=== PATIENT | male | born 1995 | race Caucasian/White ===

== ENCOUNTER 2020-04-28 07:35 | Emergency (ER) | payer SELFPAY ==
[2020-04-28 07:39] VITALS: BP 156/98; PULSE 72; RESP 16; TEMP 36; O2SAT 96
--- NOTE | 2020-04-28 07:56 | W.ED.GENAD ---
Discharge Plan Disposition Patient Disposition: HOME Condition: Improving Discharge Details Chief Complaint: EyeProblem Clinical Impression: Abrasion of cornea, left Primary Care Provider: Marichuy,Local ED Provider: Villa Alvares Home Meds and New Rx's Prescriptions: No Action No Known Home Meds RF: 0 Discharge Instructions Instructions: Corneal Abrasion (ED) Additional Instructions: Erythromycin ointment to left eye 3-4 times daily for 4 to 5 days. Return if develop any progressively worsening red eye, pain, fever or foul/purulent discharge. Sunglasses and cool compress will help to reduce discomfort. Tylenol and/or ibuprofen as needed for pain. Medical Decision Making 25-year-old male who lives in [facility]. Foreign body sensation left eye since yesterday that he thought may have been a piece of brick or wood. He had a small foreign body seen under the eyelid which was removed. There were superficial mild corneal abrasions left superotemporal outside the axis of vision. Visual acuity preserved as per nursing notes. Will place on erythromycin ointment. He will return or seek follow-up if not improving over 24 to 48 hours. I discussed home management with him. He is stable for discharge at this time. HPI General Mode of arrival: ambulatory. Date/Time Provider Initiated Documentation: 04/28/20 07:56. Limitations to Documentation: no limitations. Information obtained by: patient. History of Present Illness 25 year old M presents to the emergency department with the chief complaint of Eye foreign body sensation, described as mild, Quality is described as constant, and is localized to the eyes and left. and it has been constant. No relieving factors improve symptom(s), No exacerbating factors reported . Patient did receive the following treatments prior to arrival, none and other (Clear tears) Related Data Home Medications Medication Instructions Recorded Confirmed Unknown [No Known Home Meds] 04/28/20 04/28/20 Allergies Allergy/AdvReac Type Severity Reaction Status Date / Time No Known Allergies Allergy Unverified 04/28/20 07:43 General Stated Complaint: EyeProblem MIKE: 3 Review of Systems Narrative: Otherwise healthy. [facility] Social History Smoking/Tobacco Use Status: Never Alcohol Intake: current Alcohol Intake frequency: a few times a week Alcohol type: beer and hard liquor Substance use type: marijuana Exam Narrative Exam Narrative: GEN: awake, alert, oriented 3. Pleasant, well groomed, interactive. HEAD: Normocephalic, atraumatic ENT: Mucous membranes moist, oropharynx unremarkable, External ear exam unremarkable EYES: PERRL, EOMI. left eye slightly injected. Small foreign body seen under eyelid. Fluorescein/slit lamp exam with negative John sign, mild superficial left superotemporal corneal abrasions outside axis of vision. Visual acuity per nursing note NECK: Full ROM, no ELIZABET, no menigismus CHEST/RESP: No respiratory distress EXT: Full ROM, normal musculature Neuro: Grossly normal neurologic exam, conversant, interactive. Psych: Speech fluent, thoughts congruent, affect normal Course Vital Signs Vital signs: Vital Signs Temperature 36 C L 04/28/20 07:39 Pulse 72 04/28/20 07:39 Respiratory Rate 16 04/28/20 07:39 Blood Pressure 156/98 H 04/28/20 07:39 Pulse Oximetry 96 04/28/20 07:39 Temperature 36 C L 04/28/20 07:39 Temperature Source Skin 04/28/20 07:39 Pulse 72 04/28/20 07:39 Respiratory Rate 16 04/28/20 07:39 Respiratory Effort 04/28/20 07:39 Blood Pressure 156/98 H 04/28/20 07:39 Blood Pressure Position Sitting 04/28/20 07:39 Pulse Oximetry 96 04/28/20 07:39 Oxygen Delivery Method Room Air 04/28/20 07:39 Oxygen Flow Rate 0 04/28/20 07:39 Pain Level 2 04/28/20 07:39
[2020-04-28] MEDS: Erythromycin Ophth Oint 3.5 GM TUBE OS (08:00)
[2020-04-28] MEDS: Balanced Salt Solution 15 ML BTL (08:00)
[2020-04-28] MEDS: Fluorescein STRIPS 100/BOX 1 MG (08:00)
== END 2020-04-28 08:20 | disposition home or self-care (01) ==
PROVIDERS: Emergency Provider Emergency Medicine
DX: S05.02XA Injury of conjunctiva and corneal abrasion without foreign body, left eye, initial encounter (principal); X58.XXXA Exposure to other specified factors, initial encounter
CPT/HCPCS: 99283

== ENCOUNTER 2020-06-30 10:03 | Emergency (ER) | payer OTHER, SELFPAY ==
[2020-06-30] VITALS (38 sets, daily range): BP systolic 136–158; BP diastolic 77–99; PULSE 56–90; RESP 16–25; TEMP 36.3; O2SAT 96–99
--- NOTE | 2020-06-30 10:00 | RT.EKG_ITS ---
APPROVED REPORT Exam: Resting ECG Patient Location: E HR:72 bpm ECG Measurements Heart Rate 72 AXIS AL 151 P 40 QRSd 93 QRS 17 QT 361 T 28 QTc 397 Conclusion Sinus rhythm...normal P axis, V-rate 60- 99 I have reviewed and interpreted ECG and agree with software generated interpretation.
[2020-06-30 10:55] LABS: Abs Immature Grans 0.01 10^3/uL (0.0-0.06); Absolute Basophil Count 0.03 10^3/uL (0.0-0.2); Absolute Eosinophil Count 0.05 10^3/uL (0.0-0.7); Absolute Lymphocyte Count 1.26 10^3/uL (1.2-3.4); Absolute Monocyte Count 0.41 10^3/uL (0.1-0.8); Basophils % 0.7; Eosinophils % 1.1; HCT 44.5 % (40.0-50.0); HGB 15.1 g/dL (13.5-17.5); Immature Grans % 0.2; Lymphocytes % 28.3; MCHC 33.9 % (32.0-36.0); MCV 91.4 fL (80-95); MPV 11.5 fL (8.0-11.0); Monocytes % 9.2; Neutrophils % 60.5; Nucleated RBC 0 %; Platelet Count 212 10^3/uL (130-400); RBC 4.87 10^6/uL (4.36-5.78); RDW 12.4 % (11.8-14.1); RDW-SD 41.1 fL; WBC 4.46 10^3/uL (4.4-10.8)
[2020-06-30 11:16] LABS: ALT 43 U/L (16-63); AST 28 U/L (15-37); Albumin 4.2 g/dL (3.4-5.0); Alkaline Phosphatase 70 U/L (46-116); Anion Gap 7.4 mmol/L (3-11); BUN 12 mg/dL (7-18); Bilirubin, Total 0.3 mg/dL (0.2-1.0); CO2 29.6 mmol/L (21.0-32.0); CREATININE 0.95 mg/dL (0.70-1.30); Chloride 102 mmol/L (98-107); Glucose 77 mg/dL (74-106); Potassium 3.6 mmol/L (3.5-5.1); Sodium 139 mmol/L (136-145); TSH 1.36 uIU/mL (0.36-3.74); Total Protein 7.6 g/dL (6.4-8.2); Troponin I < 0.05 ng/mL (<0.06)
[2020-06-30] MEDS: Normal Saline 1,000 ML 1000 ML IV (11:19)
--- NOTE | 2020-06-30 11:29 | W.ED.GENAD ---
Discharge Plan Disposition Patient Disposition: HOME Condition: Stable Discharge Details Clinical Impression: Palpitations Primary Care Provider: None,None ED Provider: Brian Quiros Home Meds and New Rx's Prescriptions: No Action No Known Home Meds RF: 0 Discharge Instructions Instructions: Heart Palpitations (ED) Additional Instructions: At this time your work-up in the ER has not shown any obvious emergent process and your symptoms have resolved. As we discussed, I do believe that proper primary care follow-up, outpatient Holter monitor, further evaluation of your ongoing symptoms is indicated. Please watch for new or worsening symptoms and return to the ER for any concerns. I do recommend reaching out to your primary care provider in [facility] first thing tomorrow morning. You may want to monitor your caffeine intake as well. Medical Decision Making 25-year-old gentleman reports multiple symptoms that began at 9 AM after he drank 2 cups of coffee quickly. He does report similar episodes in the past after drinking energy drinks. He also reports this feels similar to previous anxiety attack. Symptoms have improved greatly since 9:00, now he just feels a little off but has no focal complaints. He is concerned about multiple things such as SVT, hypertension, diabetes, etc. Upon evaluation his blood pressure is 154/95, pulse is 87, respirations 22, O2 sat 98% on room air, he is afebrile, he does seem to be slightly anxious. He is neurologically intact. Differential is wide and includes caffeine reaction, anxiety, SVT, anemia, infectious process, thyroid abnormality, atypical ACS, etc. Will give IV fluids, initiate cardiac work-up and reassess. I see no clear indication for emergent CT imaging of his head and brain. Initial laboratory values are unremarkable. White blood cell count 4.46 hemoglobin 15.1 hematocrit 44.5 platelet count 212. Chemistries normal, GFR greater than 60, troponin less than 0.05. Urinalysis is unremarkable for infection. THC positive. Chest x-ray unremarkable. Upon reevaluation patient is asymptomatic. We discussed options. He is agreeable to awaiting a 3-hour repeat troponin. In the meantime I have contacted respiratory therapy and care management to discuss getting the patient an outpatient 14-day Holter monitor for potential arrhythmia. Repeat troponin is less than 0.05. After care management spoke with the patient, he is declining any Holter monitor at this time and would like to further investigate his insurance before he gets charged the bill that he cannot pay. He has been observed in the ER for over 3-1/2 hours, has remained asymptomatic, no evidence of arrhythmia. I believe this to be a perfectly reasonable plan. Patient was encouraged to return to the ER for new or worsening symptoms. Otherwise he will contact his primary care provider in [facility] tomorrow for prompt outpatient reevaluation. Patient is no longer anxious, blood pressure is trending downward. He remains neurologically intact, ambulates without difficulty. Imaging Data Radiologic Study: Attestation: I personally reviewed and interpreted this imaging study as follows: Imaging: X-Ray My impression: Chest x-ray negative per radiology Lab Data Lab results reviewed: Yes I reviewed the patient's lab results. Lab results narrative: Laboratory Tests Range/Units 06/30/20 06/30/20 06/30/20 10:30 10:30 11:25 WBC (4.4-10.8) 10^3/uL 4.46 RBC (4.36-5.78) 10^6/uL 4.87 Hgb (13.5-17.5) g/dL 15.1 Hct (40.0-50.0) % 44.5 MCV (80-95) fL 91.4 MCH (27.0-33.0) pg 31.0 MCHC (32.0-36.0) % 33.9 RDW (11.8-14.1) % 12.4 Plt Count (130-400) 10^3/uL 212 MPV (8.0-11.0) fL 11.5 H Immature Gran % 0.2 Neutrophils % 60.5 Lymphocytes % 28.3 Monocytes % 9.2 Eosinophils % 1.1 Basophils % 0.7 Nucleated RBC % % 0 Absolute Neutrophils (1.2-6.7) 10^3/uL 2.70 Absolute Lymphocytes (1.2-3.4) 10^3/uL 1.26 Absolute Monocytes (0.1-0.8) 10^3/uL 0.41 Absolute Eosinophils (0.0-0.7) 10^3/uL 0.05 Absolute Basophils (0.0-0.2) 10^3/uL 0.03 Sodium (136-145) mmol/L 139 Potassium (3.5-5.1) mmol/L 3.6 Chloride (98-107) mmol/L 102 Carbon Dioxide (21.0-32.0) mmol/L 29.6 Anion Gap (3-11) mmol/L 7.4 BUN (7-18) mg/dL 12 Creatinine (0.70-1.30) mg/dL 0.95 Estimated GFR/1.73 m2 (mL/min/1.73m2) >= 60.00 Glucose (74-106) mg/dL 77 Calcium (8.5-10.1) mg/dL 9.0 Magnesium (1.8-2.4) mg/dL 2.0 Total Bilirubin (0.2-1.0) mg/dL 0.3 AST (15-37) U/L 28 ALT (16-63) U/L 43 Alkaline Phosphatase (46-116) U/L 70 Troponin I (<0.06) ng/mL < 0.05 Total Protein (6.4-8.2) g/dL 7.6 Albumin (3.4-5.0) g/dL 4.2 TSH (0.36-3.74) uIU/mL 1.36 Urine Color (Yellow) Yellow Urine Clarity (Clear) Clear Urine pH (5-8) 7.0 Ur Specific Mission (1.005-1.025) 1.025 Urine Protein (Negative) mg/dL Negative Urine Ketones (Negative) mg/dL Negative Urine Blood (Negative) Negative Urine Nitrite (Negative) Negative Urine Bilirubin (Negative) Negative Urine Urobilinogen (Up TO 0.2) EU/dL 0.2 Ur Leukocyte Esterase (Negative) Negative Urine Glucose (Negative) mg/dL Negative Urine Opiates Screen (Negative) Urine Methadone Screen (Negative) Ur Barbiturates Screen (Negative) Ur Tricyclics Screen (Negative) Ur Amphetamines Screen (Negative) U Benzodiazepines Scrn (Negative) Urine Cocaine Screen (Negative) Ur THC Screen (Negative) Range/Units 06/30/20 06/30/20 11:25 13:30 WBC (4.4-10.8) 10^3/uL RBC (4.36-5.78) 10^6/uL Hgb (13.5-17.5) g/dL Hct (40.0-50.0) % MCV (80-95) fL MCH (27.0-33.0) pg MCHC (32.0-36.0) % RDW (11.8-14.1) % Plt Count (130-400) 10^3/uL MPV (8.0-11.0) fL Immature Gran % Neutrophils % Lymphocytes % Monocytes % Eosinophils % Basophils % Nucleated RBC % % Absolute Neutrophils (1.2-6.7) 10^3/uL Absolute Lymphocytes (1.2-3.4) 10^3/uL Absolute Monocytes (0.1-0.8) 10^3/uL Absolute Eosinophils (0.0-0.7) 10^3/uL Absolute Basophils (0.0-0.2) 10^3/uL Sodium (136-145) mmol/L Potassium (3.5-5.1) mmol/L Chloride (98-107) mmol/L Carbon Dioxide (21.0-32.0) mmol/L Anion Gap (3-11) mmol/L BUN (7-18) mg/dL Creatinine (0.70-1.30) mg/dL Estimated GFR/1.73 m2 (mL/min/1.73m2) Glucose (74-106) mg/dL Calcium (8.5-10.1) mg/dL Magnesium (1.8-2.4) mg/dL Total Bilirubin (0.2-1.0) mg/dL AST (15-37) U/L ALT (16-63) U/L Alkaline Phosphatase (46-116) U/L Troponin I (<0.06) ng/mL < 0.05 Total Protein (6.4-8.2) g/dL Albumin (3.4-5.0) g/dL TSH (0.36-3.74) uIU/mL Urine Color (Yellow) Urine Clarity (Clear) Urine pH (5-8) Ur Specific Mission (1.005-1.025) Urine Protein (Negative) mg/dL Urine Ketones (Negative) mg/dL Urine Blood (Negative) Urine Nitrite (Negative) Urine Bilirubin (Negative) Urine Urobilinogen (Up TO 0.2) EU/dL Ur Leukocyte Esterase (Negative) Urine Glucose (Negative) mg/dL Urine Opiates Screen (Negative) Negative Urine Methadone Screen (Negative) Negative Ur Barbiturates Screen (Negative) Negative Ur Tricyclics Screen (Negative) Negative Ur Amphetamines Screen (Negative) Negative U Benzodiazepines Scrn (Negative) Negative Urine Cocaine Screen (Negative) Negative Ur THC Screen (Negative) Positive A ECG Data Attestation: I personally reviewed and interpreted this ECG (s) as follows: Interpretation: Please see official report by Dr. Ayers. Sinus rhythm, ventricular of 72. No STEMI HPI General Mode of arrival: ambulatory. Date/Time Provider Initiated Documentation: 06/30/20 10:05. Limitations to Documentation: no limitations. Information obtained by: patient. HPI Narrative: This is a 25-year-old gentleman who denies any past medical history. He admits to marijuana use and smokes a beer or 2 daily. He states that he is no longer on his parents insurance and therefore he is unsure if he has a primary care provider or not. He presents today reporting that he typically drinks 1-3 cups of coffee daily. Around 9 AM he states that he drank 2 cups very quickly and almost immediately developed symptoms. He states that he developed what felt like a rapid heart rate, a mild headache, slight dizziness. He describes the dizziness more like feeling off balance but not like the room is spinning. He noticed tingling in his bilateral hands. He also states that his vision was blurry but upon further investigation he reports more like tunnel vision, centrally he could see well, peripherally felt blurry. He states that his coworkers had him very concerned that his symptoms could be secondary to SVT, hypertension, diabetes, etc. he admits that this made him increasingly nervous and anxious. He tells me he has a history of anxiety, and had a panic attack but did feel fairly similar to this. Over the past year or 2 he openly admits that he has not taken very good care of himself, has gained weight, drinks alcohol daily, and has not been eating very healthy. Upon further investigation he reports that he has had similar symptoms in the past just not quite as severe. They have happened in the past after drinking energy drinks. Upon presentation to the ER he reports feeling significantly improved but still feels a little off. He denies any no significant family past medical history. He admits to marijuana nearly daily, denies any other drug use. Denies recent illness, trauma, stressors. Related Data Home Medications Medication Instructions Recorded Confirmed Unknown [No Known Home Meds] 04/28/20 06/30/20 Allergies Allergy/AdvReac Type Severity Reaction Status Date / Time No Known Allergies Allergy Unverified 06/30/20 10:23 General Stated Complaint: Dizzy/Sync MIKE: 2 Review of Systems Constitutional Constitutional: Denies fever(s), Reports headache(s) and Denies weakness Eyes Eyes: Reports blurry vision ENT Ears, Nose, Mouth, and Throat: Reports dizziness, Reports headache(s) and Denies neck pain Cardiovascular Cardiovascular: Denies chest pain, Reports palpitations and Denies dyspnea Respiratory Respiratory: Denies cough and Denies dyspnea Gastrointestinal Gastrointestinal: Denies abdominal pain, Denies nausea and Denies vomiting Genitourinary Genitourinary: Denies urinary incontinence Musculoskeletal Musculoskeletal: Denies back pain, Denies neck pain, Denies numbness and Denies tingling Integumentary/Breasts Skin/Breast: Denies rash Neurologic Neurologic: Reports dizziness, Reports headache(s), Denies numbness, Denies tingling and Denies weakness Psychiatric Psychiatric: Reports anxiety Endocrine Endocrine: Reports palpitations REPLACED BY [facility] Social History Smoking/Tobacco Use Status: Former Tobacco Use Smoking risk assessment performed?: Yes Alcohol Intake: current Alcohol Intake frequency: 0-2 drinks per day Alcohol type: beer and hard liquor Drug use: Daily Substance use type: marijuana Do you feel safe at home: Yes Do you feel safe in your relationship?: Yes Exam Const General: cooperative, healthy appearing, comfortable, no acute distress and anxious Orientation: alert, awake and oriented x3 HENMT Head: normal to inspection, normocephalic and atraumatic Ears: external ears normal, TM's normal bilaterally and EAC's normal General nose exam: external nose normal Face and sinus: normal facial exam Mouth: moist mucous membranes Throat: posterior oropharynx normal Eyes General: appearance normal, both eyes and all related structures Visual Gallego: normal visual gallego by confrontation Alignment and Position: alignment normal Periorbital: periorbital findings normal Eyelids: eyelids normal Conjunctivae: conjunctivae normal Sclera: sclerae normal Cornea: corneas normal Pupils: PERRL EOM: EOM intact bilaterally Direct ophthalmoscopy: normal light reflex Neck Neck: normal visual inspection, full ROM, no lymphadenopathy, no meningeal signs, trachea midline, supple and nontender Resp Effort & Inspection: normal respiratory effort and able to speak in complete sentences Auscultation: clear to auscultation bilaterally Cardio Rate: regular rate Rhythm: regular rhythm GI Palpation: soft, not firm, no guarding, no masses and nontender Auscultation: normal bowel sounds Back/Spine/Pelvis Back: No back tenderness Skin General skin exam: no rashes or lesions noted Neuro General: patient alert, patient awake, patient oriented x3, moves all extremities and no focal motor deficits Cranial Nerves: CN's II-XI intact bilaterally Cognition: normal cognition Speech: speech normal Gait: normal gait Motor: muscle tone normal throughout, strength 5/5 throughout, no pronator drift, no movement abnormalities noted and no fasciculations Sensory Exam: no sensory deficits noted Extrem General: normal to inspection, full ROM, capillary refill normal, no pedal edema and no calf tenderness Psych Appearance: grossly normal Mental Status: mental status grossly normal Speech and Movement: speech and movement normal Mood: congruent mood Affect: normal affect Attitude: cooperative Thought Process: normal Thought Content: normal Insight: insight good Judgment: judgment good Course Vital Signs Vital signs: Vital Signs Pulse 87 06/30/20 10:16 Respiratory Rate 22 06/30/20 10:16 Blood Pressure 154/95 H 06/30/20 10:16 Pulse Oximetry 98 06/30/20 10:16 Pulse 71 06/30/20 11:16 Pulse 76 06/30/20 11:16 Respiratory Rate 21 06/30/20 11:16 Respiratory Effort Non-Labored 06/30/20 10:21 Blood Pressure 137/86 06/30/20 11:16 Blood Pressure Mean 97 06/30/20 11:16 Pulse Oximetry 97 06/30/20 11:16 Oxygen Delivery Method Room Air 06/30/20 10:16 Oxygen Flow Rate 0 06/30/20 10:16 Pain Level 0 06/30/20 10:16 Lab/Test Results Lab/Test Results: Laboratory Tests Range/Units 06/30/20 06/30/20 10:30 10:30 WBC (4.4-10.8) 10^3/uL 4.46 RBC (4.36-5.78) 10^6/uL 4.87 Hgb (13.5-17.5) g/dL 15.1 Hct (40.0-50.0) % 44.5 MCV (80-95) fL 91.4 MCH (27.0-33.0) pg 31.0 MCHC (32.0-36.0) % 33.9 RDW (11.8-14.1) % 12.4 Plt Count (130-400) 10^3/uL 212 MPV (8.0-11.0) fL 11.5 H Immature Gran % 0.2 Neutrophils % 60.5 Lymphocytes % 28.3 Monocytes % 9.2 Eosinophils % 1.1 Basophils % 0.7 Nucleated RBC % % 0 Absolute Neutrophils (1.2-6.7) 10^3/uL 2.70 Absolute Lymphocytes (1.2-3.4) 10^3/uL 1.26 Absolute Monocytes (0.1-0.8) 10^3/uL 0.41 Absolute Eosinophils (0.0-0.7) 10^3/uL 0.05 Absolute Basophils (0.0-0.2) 10^3/uL 0.03 Sodium (136-145) mmol/L 139 Potassium (3.5-5.1) mmol/L 3.6 Chloride (98-107) mmol/L 102 Carbon Dioxide (21.0-32.0) mmol/L 29.6 Anion Gap (3-11) mmol/L 7.4 BUN (7-18) mg/dL 12 Creatinine (0.70-1.30) mg/dL 0.95 Estimated GFR/1.73 m2 (mL/min/1.73m2) >= 60.00 Glucose (74-106) mg/dL 77 Calcium (8.5-10.1) mg/dL 9.0 Magnesium (1.8-2.4) mg/dL 2.0 Total Bilirubin (0.2-1.0) mg/dL 0.3 AST (15-37) U/L 28 ALT (16-63) U/L 43 Alkaline Phosphatase (46-116) U/L 70 Troponin I (<0.06) ng/mL < 0.05 Total Protein (6.4-8.2) g/dL 7.6 Albumin (3.4-5.0) g/dL 4.2 TSH (0.36-3.74) uIU/mL 1.36
--- NOTE | 2020-06-30 11:37 | DI.RAD_ITS ---
EXAM: XR CHEST 2V PA LATERAL CLINICAL HISTORY: rapid HR, dizzy TECHNIQUE: 2D digital imaging was performed. COMPARISON: No exams were available for comparison FINDINGS: MEDIASTINUM: Normal. HEART: Normal. PULMONARY VASCULATURE: Normal. LUNGS: Clear. PLEURAL SPACE: No pleural effusion or pneumothorax. BONE:Within normal limits for the patient's age. OTHER FINDINGS:Normal. IMPRESSION: No acute pulmonary findings. DATA REPOSITORY: RADIATION DOSE DELIVERED:
[2020-06-30 11:38] LABS: Bilirubin Negative (Negative); Blood Negative (Negative); Clarity Clear (Clear); Glucose Negative (Negative); Ketones Negative (Negative); Leukocyte Esterase Negative (Negative); Nitrite Negative (Negative); Specific Gravity 1.025 (1.005-1.025); Urobilinogen 0.2 EU/dL (Up TO 0.2)
[2020-06-30 11:49] LABS: *AMPHETAMINES SCREEN URINE Negative (Negative); *BARBITURATES SCREEN URINE Negative (Negative); *BENZODIAZEPINES SCREEN URINE Negative (Negative); Cannabinoids THC POSITIVE (Negative); Cocaine Screen,Urine Negative (Negative); METHADONE URINE SCREEN Negative (Negative); OPIATES URINE SCREEN Negative (Negative); Tricyclic Antidepressants Negative (Negative)
[2020-06-30 13:52] LABS: Troponin I < 0.05 ng/mL (<0.06)
--- NOTE | 2020-06-30 18:00 | PDOC.ERCMPRO ---
- If Service Date Differs Date of service: 06/30/20 Time of Service: 15:30 Care Management Progress Note Josué presents at the ED with concerns of an SVT. ED provider is contemplating discharging Josué with a 14-day monitor, but his lack of a PCP is interfering with this plan. At the request of ED provider, GERMAINE meets with Josué to explore his preference for a PCP, as he lives in [place], [place], but works in [facility]. Josué advises he had a primary care doctor at [facility] in [place], [place], but has not seen him in approximately a year and does not know if he is still considered a patient at that medical practice. Since his preference is to have a PCP in the [place] area, GERMAINE offers to contact the [facility] to inquire whether he is still considered an active patient. Josué declines the offer and says he will call them in the morning and will either schedule a follow up appointment or will inquire as to how to re-establish care. He goes on to say he is feeling much better and does not wish to proceed with a monitor at this time. GERMAINE relays this information to WYATT Perkins, ED provider.
== END 2020-06-30 14:12 | disposition home or self-care (01) ==
PROVIDERS: Emergency Provider Physician Assistant
DX: R00.2 Palpitations (principal); R42 Dizziness and giddiness
CPT/HCPCS: 36416; 80053; 80307; 82962; 93005; 96360; 96361; 99285; 71046; 81003; 83735; 84443; 84484; 85025; 93010; 99284